=== PATIENT | female | born 1940 | race Asian ===

== ENCOUNTER → 2020-02-07 | Outpatient (CLI) | payer OTHER ==
[~2020-02-07] MED LIST: AVAPRO300 MG PO; FOSAMAX 70 MG T70 MG PO; LIPITOR40 MG PO; LOSARTAN POTAS100 MG PO; LOVASTATIN 20 M20 MG PO; MIRALAX119 GM PO; TOPROL XL50 MG PO
== END ==
LOC: LAB 08:19
PROVIDERS: ATTEND Ophthalmology
DX: Z01.812 Encounter for preprocedural laboratory examination (principal); Z20.828 Contact with and (suspected) exposure to other viral communicable diseases

== ENCOUNTER 2020-02-10 06:37 | Day surgery (SDC) | payer OTHER ==
[~2020-02-10] VITALS: Ht 152.4 cm; Wt 56.7 kg
[2020-02-10 07:49] VITALS: BP 140/82
--- NOTE | 2020-02-14 06:21 | O ---
[facility] Jovany Amato [facility] [place] [address] OPERATIVE REPORT Name: FRANCIE CASPER Room #: [facility]#: [id number] Admission: 02/10/20 Attend Phys: Marty Little MD Discharge: 02/10/20 Date of : 40 Report #: [id number] THIS REPORT FOR: cc: Emma Zapien MD, Alicia Arifah MD White,Marty Ferrari MD ~ CC: Emma Little DATE OF SERVICE: 02/10/2020 PREOPERATIVE DIAGNOSIS: Cicatricial upper lid entropion, both eyes. POSTOPERATIVE DIAGNOSIS: Cicatricial upper lid entropion, both eyes. PROCEDURE: Bilateral upper lid entropion repair. SURGEON: Marty Little MD CORPORATE GENERAL MANAGER: None. ANESTHESIA: MAC. COMPLICATIONS: None. 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 This appears to be consistent with either prior trichoma or an early presentation for ocular cicatricial pemphigoid. She presents today for bilateral upper lid surgery to improve the upper lid margin position on the globe recognizing that she has both trichiasis and entropion. This procedure should improve the entropion, but we may still have trichiasis to treat later. With that understanding, informed consent was obtained to include but not limited to potential risk for loss of vision, bleeding, infection, failure to improve the problem and the potential need for further surgery or treatment. DESCRIPTION OF PROCEDURE: The patient was taken to the operating room where 2% Xylocaine with epinephrine mixed with equal parts of 0.75% Marcaine with Wydase was administered transcutaneously to each upper lid. The patient was subsequently prepped and draped in the usual sterile fashion. Attention was first turned to the right eye where the anterior and posterior lamellae were . Hemostasis was then re-achieved. The anterior lamella was then recessed on to the posterior lamella with multiple interrupted 5-[address] [address] OPERATIVE REPORT Name: FRANCIE CASPER Richard Room #: [facility]..#: [id number] Admission: 02/10/20 Attend Phys: Marty Little MD Discharge: 02/10/20 Date of : 40 Report #: [id number] chromic sutures everting the upper lid margin. The margin of the eyelid everted well across the entire width of the lid. Attention was then turned to the other side, where the same procedure was performed. There was no conjunctival violation during the procedure. The incision in the area of the polanco line appeared to be adequate and the eversion once again was good. The wounds were then cleaned and dressed with erythromycin ophthalmic ointment. The patient subsequently transported to the recovery area having tolerated the procedures well with no anesthetic or operative complications being noted. <ELECTRONICALLY SIGNED> By: Marty Little MD 02/14/20 0621 [id number] Marty Little MD /nt
== END 2020-02-10 09:35 | disposition home or self-care (01) ==
LOC: OR 06:37 → TBA 06:38 → OR 09:35
PROVIDERS: ATTEND Ophthalmology
DX: H02.014 Cicatricial entropion of left upper eyelid (principal); H02.011 Cicatricial entropion of right upper eyelid; I10 Essential (primary) hypertension; E78.00 Pure hypercholesterolemia, unspecified; M81.0 Age-related osteoporosis without current pathological fracture; Z98.890 Other specified postprocedural states; Z79.899 Other long term (current) drug therapy; Z90.710 Acquired absence of both cervix and uterus; Z86.73 Personal history of transient ischemic attack (TIA), and cerebral infarction without residual deficits; Z98.41 Cataract extraction status, right eye; Z98.42 Cataract extraction status, left eye
CPT/HCPCS: 50010; 50101; 50386; 50398; 51636; 56531; 62110; 62850; 64037; 70005

== ENCOUNTER → 2020-12-27 | Outpatient (CLI) | payer OTHER | LOC: LAB 07:41 | PROVIDERS: ATTEND Student in an Organized Health Care Education/Training Program | DX: Z01.812 Encounter for preprocedural laboratory examination (principal); Z20.822 Contact with and (suspected) exposure to COVID-19 ==

== ENCOUNTER 2020-12-28 06:31 | Day surgery (SDC) | payer OTHER ==
[~2020-12-28] VITALS: Ht 152.4 cm; Wt 54.4 kg
--- NOTE | ~2020-12-28 | O ---
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 PROCEDURE: Bilateral upper lid entropion repair. SURGEON: Marty Little M.D. POKER IN: None. ANESTHESIA: MAC. COMPLICATIONS: None. 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 She has previously undergone an upper lid entropion repair, which has unfortunately not been sufficient in strength to hold her lids everted mcc. She presents today for a more aggressive upper lid entropion repair in order to reduce her risk for progressive corneal scarring, loss of vision and loss of the eye. Informed consent was obtained to include the potential risk for loss of vision, bleeding, infection, failure to improve the problem, and get the potential need for other upper lid surgery. DESCRIPTION OF PROCEDURE: The patient was taken to the operating room where 2% Xylocaine with epinephrine mixed with equal parts 0.75% Marcaine with Wydase was administered transcutaneously and transconjunctivally to each upper lid. The patient was subsequently prepped and draped in the usual sterile fashion. Attention was first turned to the right upper lid. An 11 blade was then used to separate the anterior and posterior lamella across the polanco line from the medial canthus all the way to the lateral canthus. Hemostasis was then re-achieved. The anterior lamella was then recessed onto the posterior lamella and elevated. Hemostasis was once more re-achieved. Multiple interrupted mattress 5-0 chromic sutures were then placed transcutaneously and also through the tarsal plate [address] [address] OPERATIVE REPORT Name: FRANCIE CASPER Richard Room #: 150-5 [facility].#: [id number] Admission: 12/28/20 Attend Phys: Marty Little MD Discharge: Date of : 40 Report #: [id number] partial thickness to both recess the anterior lamella anteverted externally. A moistened sponge was placed on the right side with attention was turned to the left side where the same procedure was performed. The lid margin rotated and recessed well. The wounds were then cleaned and dressed with erythromycin ophthalmic ointment. The patient subsequently transported to the recovery area having tolerated the procedures well with no anesthetic or operative complications being noted. By: [id number] MD caitlin Garcia
[2020-12-28 08:01] VITALS: BP 157/81
== END 2020-12-28 08:37 | disposition home or self-care (01) ==
LOC: TBA 06:31 → OR 06:31 → TBA 06:50 → OR 07:46
PROVIDERS: ATTEND Ophthalmology
DX: H02.004 Unspecified entropion of left upper eyelid (principal); H02.001 Unspecified entropion of right upper eyelid; H18.9 Unspecified disorder of cornea; I10 Essential (primary) hypertension; E78.00 Pure hypercholesterolemia, unspecified; M81.0 Age-related osteoporosis without current pathological fracture; Z98.890 Other specified postprocedural states; Z79.899 Other long term (current) drug therapy; Z86.73 Personal history of transient ischemic attack (TIA), and cerebral infarction without residual deficits; Z90.710 Acquired absence of both cervix and uterus; Z98.41 Cataract extraction status, right eye; Z98.42 Cataract extraction status, left eye
CPT/HCPCS: 50101; 50386; 50398; 51636; 62110; 62850